=== PATIENT | male | born 1950 | race Caucasian/White ===

== ENCOUNTER → 2018-06-11 | Outpatient (CLI) | payer MEDICARE, OTHER ==
[~2018-06-11] MED LIST: ACE325 PO; DOC100 PO; LANS15CA28 PO; LANS30CA70 PO; LEV500 PO; LISI-368 PO; OXYB10TA21 PO; PAN40 PO; PHENA200 PO; SUC1 PO; TAM4 PO; UBID100C33 PO
--- NOTE | 2018-06-11 14:20 | RADIOLOGY IMAGING REPORT ---
FACILITY: [facility] PATIENT NAME: Lg Muñoz : 1950 MR: [id number] V: [id number] EXAM DATE: ORDERING PHYSICIAN: FRANCHESCA DOMINGUEZ TECHNOLOGIST: Location: [facility] Patient: Lg Muñoz : 1950 Visit/Account:[id number] Date of Sevice: 06/11/2018 Exam type: SOFT TISSUE NON-SPECIFIC History: Mass along the medial right shoulder blade x1 month Comparison: None. Findings: Multiple sonographic images were obtained along the posterior upper right back adjacent to the patien t's scapula in location of apparent palpable abnormality. There is no sonographic demonstration of a focal mass cystic or solid IMPRESSION: 1. No sonographic abnormality identified along the posterior upper right back adjacent to the scapul a to account for patient's palpable findings if this remains of strong clinical concern CT or MR is r ecommended Report Dictated By: Ingris Jones MD at 06/11/2018 2:12 PM Report E-Signed By: Ingris Jones MD at 06/11/2018 2:15 PM WSN:[id number]
== END ==
LOC: US 11:08
PROVIDERS: ATTEND Family Medicine
DX: R22.2 Localized swelling, mass and lump, trunk (principal)
CPT/HCPCS: 76999

== ENCOUNTER 2018-06-12 14:16 | Outpatient (RCR) | payer MEDICARE, OTHER ==
--- NOTE | 2018-06-13 17:36 | RADIOLOGY IMAGING REPORT ---
FACILITY: [facility] [place] PATIENT NAME: Lg Muñoz : 1950 MR: [id number] V: [id number] EXAM DATE: [id number] ORDERING PHYSICIAN: FRANCHESCA DOMINGUEZ TECHNOLOGIST: Location: [facility] Patient: Lg Muñoz : 1950 Visit/Account:[id number] Date of Sevice: 06/13/2018 ADDENDUM #1 Please disregard the original report. This is in 4 different study and agree patient. This addendum contains the actual report for this patient per the MRI chest with and without contrast . MRI chest with and without contrast INDICATION: Soft tissue mass medial right shoulder. History of lymphoma COMPARISON: None available TECHNIQUE: Multiplanar multisequence MR images were obtained through the right chest before and after administration of 15 mL IV MultiHance contrast. FINDINGS: There are markers along the posterior margin of the mid posterior and inferior posterior aspects of t he right chest wall. There is no underlying enhancing lesion identified or evidence of significant un derlying intramuscular edema. There is no focal fluid collection identified. The visualized right ribs are unremarkable with no acute or aggressive osseous abnormality. IMPRESSION: 1. No focal abnormality deep to the markers.. Report Dictated By: Chris Shaw MD at 06/13/2018 5:33 PM Report E-Signed By: Chris Shaw MD at 06/13/2018 5:[address] of the right foot INDICATION: Metatarsalgia of the right foot. COMPARISON: None available. Technique: Axial CT images were obtained through the right foot. Reformatted coronal and sagittal im ages were reviewed. One of the following dose optimization techniques was utilized in the performance of this exam: autom ated exposure control; adjustment of the mA and/or kV according to the patient's size; or use of an i terative reconstruction technique. Specific details can be referenced in the facility's radiology CT exam operational policy. FINDINGS: No acute fracture or dislocation. Mild enthesophyte changes Achilles tendon shows multiple upon the calcaneus and a small calcaneal spu r is noted. Moderate anterior osteophytosis of the tibiotalar joint There is also a small likely reactive effusion of the tibiotalar joint. Joint prosthesis of the 1st MTP joint noted. No obvious hardware complication. IMPRESSION: 1. No acute osseous abnormality of the right foot. 2. Chronic and degenerative changes as above. 3. Postop changes 1st MTP joint with no obvious hardware complication. Report Dictated By: Chris Shaw MD at 06/13/2018 5:07 PM Report E-Signed By: Chris Shaw MD at 06/13/2018 5:31 PM WSN:[id number]
== END 2018-07-17 ==
LOC: LAB 14:16
PROVIDERS: ATTEND Family Medicine
DX: R22.9 Localized swelling, mass and lump, unspecified (principal); Z85.72 Personal history of non-Hodgkin lymphomas
CPT/HCPCS: 36415; 71552; 82565; A9577

== ENCOUNTER → 2018-09-15 | Outpatient (CLI) | payer MEDICARE, OTHER ==
[~2018-09-15] MED LIST changes: +IOPAMIDOL 76% 75 ML INFUS BTL 75 ML ONE
--- NOTE | 2018-09-15 16:03 | RADIOLOGY IMAGING REPORT ---
[place] [facility] [place] NAME: Lg Muñoz : 1950 MR: [id number] V: [id number] EXAM DATE: ORDERING PHYSICIAN: FRANCHESCA DOMINGUEZ TECHNOLOGIST: Location: [facility] Patient: Lg Muñoz : 1950 Visit/Account:[id number] Date of Sevice: 09/15/2018 EXAMINATION: CT head without and with IV contrast HISTORY: Jaw swelling. History of lymphoma. TECHNIQUE: Axial CT images of the head were obtained from the vertex to the skull base without and with IV contrast, with coronal and sagittal 2D reconstructed images. One of the following dose optimization techniques was utilized in the performance of this exam: Autom ated exposure control; adjustment of the mA and/or kV according to the patient's size; or use of an i terative reconstruction technique. Specific details can be referenced in the facility's radiology C T exam operational policy. Contrast: 75 mL of IV Isovue-370. COMPARISON: None. FINDINGS: Mild generalized parenchymal atrophy, with mild patchy low attenuation in the deep white matter jaydon tible with chronic small vessel ischemic change. Intracranial vascular calcifications. No CT evidence of intracranial hemorrhage, mass lesion, or acute infarct. No midline shift or extra-a xial fluid collections. De Jesus-white differentiation is maintained. No abnormal enhancement on postcontrast imaging. The calvarium is intact. The paranasal sinuses and mastoid air cells are unopacified. IMPRESSION: 1. No CT evidence of acute intracranial pathology. No abnormal enhancement. 2. Mild parenchymal atrophy with chronic small vessel ischemic change. Report Dictated By: Junito Kaiser MD at 09/15/2018 3:52 PM Report E-Signed By: Junito Kaiser MD at 09/15/2018 3:58 PM WSN:[id number]
--- NOTE | 2018-09-15 16:15 | RADIOLOGY IMAGING REPORT ---
FACILITY: [facility] [place] PATIENT NAME: Lg Muñoz : 1950 MR: [id number] V: [id number] EXAM DATE: ORDERING PHYSICIAN: FRANCHESCA DOMINGUEZ TECHNOLOGIST: Location: [facility] [place] Patient: Lg Muñoz : 1950 Visit/Account:[id number] Date of Sevice: 09/15/2018 EXAMINATION: CT neck without and with IV contrast HISTORY: Jaw swelling. History of lymphoma. COMPARISON: None. TECHNIQUE: Axial CT images of the neck were obtained without and with IV contrast, from the level of the mid orbits through the upper chest, with coronal and sagittal 2D reconstructed images. CONTRAST: 75 mL of IV Isovue-370 One of the following dose optimization techniques was utilized in the performance of this exam: Autom ated exposure control; adjustment of the mA and/or kV according to the patient's size; or use of an i terative reconstruction technique. Specific details can be referenced in the facility's radiology C T exam operational policy. FINDINGS: Masses/lesions: A skin marker was placed over the lateral right jaw in the area of clinical concern. This overlies the right parotid gland. The right parotid gland appears to be mildly enlarged with so me heterogeneous parenchymal enhancement, which may relate to parotitis. No focal parotid mass is rolando dent. No definite calculus is visualized along the course of the parotid duct, allowing for some stre ak artifact from dental fillings. The left parotid and submandibular glands are unremarkable. No discrete soft tissue mass or fluid collection in the neck. Airway: Normal. Vessels: Mild atherosclerotic calcification at the left carotid bifurcation. Vasculature of the neck is patent. Musculoskeletal/body wall: Visualized osseous structures are intact. No acute osseous findings or dale picious focal osseous lesions. Normal CT appearance of the mandible. Normal alignment along the cervi rhett spine. Lymph nodes: A few mildly prominent right level II lymph nodes are nonspecific and may be reactive. T he largest lymph node measures 1.4 x 0.8 cm. Visualized orbits/brain/paranasal sinuses: The visualized paranasal sinuses are unopacified. Prior si nus surgery with medial antrectomies. Upper chest: Negative. IMPRESSION: 1. The right parotid gland appears mildly enlarged and heterogeneous with some increased enhancement. No evidence of any focal mass. CT appearance may be compatible with parotitis. No visualized stone a long the course of the parotid duct, allowing for some streak artifact secondary to dental fillings. 2. Mildly prominent right level II lymph nodes are nonspecific and may be reactive. 3. No evidence of any focal soft tissue mass or fluid collection in the neck. Report Dictated By: Junito Kaiser MD at 09/15/2018 3:58 PM Report E-Signed By: Junito Kaiser MD at 09/15/2018 4:11 PM WSN:[id number]
== END ==
LOC: CT 12:06
PROVIDERS: ATTEND Family Medicine
DX: I65.22 Occlusion and stenosis of left carotid artery (principal)
CPT/HCPCS: 70470; 70492; Q9967

== ENCOUNTER → 2018-09-17 | Outpatient (CLI) | payer MEDICARE, OTHER ==
[~2018-09-17] MED LIST changes: +BARIUM SULFATE 176 GM BTL PO ONE; +BARIUM SULFATE 340 GM POWD ONE; +DIATRIZOATE MEGL/DIATRIZOA SOD 120 ML SOLN PO ONE; -IOPAMIDOL 76% 75 ML INFUS BTL 75 ML ONE
--- NOTE | 2018-09-17 13:49 | RADIOLOGY IMAGING REPORT ---
[place] [facility] [place] NAME: Lg Muñoz : 1950 MR: [id number] V: [id number] EXAM DATE: ORDERING PHYSICIAN: FRANCHESCA DOMINGUEZ TECHNOLOGIST: Location: [facility] Patient: Lg Muñoz : 1950 Visit/Account:[id number] Date of Sevice: 09/17/2018 Exam type: ESOPHAGRAM History: The patient thinks he swallowed a chicken bone, pain in upper neck Comparison: None. Findings: A preliminary PA view of the chest revealed no evidence of a pneumomediastinum or pneumothorax or pul monary consolidation. Cardiac silhouette is normal. Hiatal hernia is noted The patient was first given a Gastrografin suspension to swallow demonstrating no evidence of obstruc tion or perforation within the esophagus. The patient then received double contrast esophagram with thick and thin barium and air contrast. There is an impression along the posterior wall of the cervi rhett esophagus likely related to the cricopharyngeus muscle. There is a small to moderate size hiatal hernia with moderate narrowing at the lower esophageal sphincter. The patient received 12 mm barium tablet which did eventually pass through the lower esophageal sphincter following numerous sips of w ater and barium. A large amount of gastroesophageal reflux was observed. Postsurgical changes from partial gastrectomy are present the fluoroscopy dose area product was 746.15 micro-De Jesus per meter squ ared IMPRESSION: 1. Radiopaque foreign body is not identified within the esophagus or hypopharynx There is an impression along the posterior wall of the cervical esophagus likely related to cricophar yngeus muscle Postsurgical changes from a partial gastrectomy with small to moderate size hiatal hernia and a large amount of gastric esophageal reflux There is moderate narrowing in the lower esophageal sphincter with delayed passage of a 12 mm barium tablet. Report Dictated By: Ingris Jones MD at 09/17/2018 1:24 PM Report E-Signed By: Ingris Jones MD at 09/17/2018 1:46 PM WSN:[email or web address]
== END ==
LOC: RAD 12:01
PROVIDERS: ATTEND Family Medicine
DX: K44.9 Diaphragmatic hernia without obstruction or gangrene (principal); K21.9 Gastro-esophageal reflux disease without esophagitis; Z98.890 Other specified postprocedural states; K22.2 Esophageal obstruction
CPT/HCPCS: 74220